=== PATIENT | male | born 1975 | race Caucasian/White ===

== ENCOUNTER 2019-07-28 16:40 | Emergency (ER) | payer SELFPAY ==
[~2019-07-28] VITALS: Ht 165.1 cm; Wt 93.0 kg
[2019-07-28 16:42] VITALS: BP 150/92
[2019-07-28] MEDS ORDERED: HYDROcodone/APAP 5/325 TABLET PO ONE (17:30)
[2019-07-28] MEDS ORDERED: HYDROcodone/APAP 5/325 TABLET ONE (17:34)
== END 2019-07-28 18:47 | disposition home or self-care (01) ==
LOC: ED 18:15
DX: S43.101A Unspecified dislocation of right acromioclavicular joint, initial encounter (principal); I10 Essential (primary) hypertension; E11.9 Type 2 diabetes mellitus without complications; F17.200 Nicotine dependence, unspecified, uncomplicated; Z72.9 Problem related to lifestyle, unspecified; W01.0XXA Fall on same level from slipping, tripping and stumbling without subsequent striking against object, initial encounter; Y93.89 Activity, other specified; Y92.488 Other paved roadways as the place of occurrence of the external cause; Y99.8 Other external cause status
CPT/HCPCS: 99283